=== PATIENT | male | born 1990 | race Two or more races ===

== ENCOUNTER 2016-08-15 12:06 | Inpatient (IN) | payer OTHER ==
[~2016-08-15] VITALS: Ht 175.3 cm; Wt 94.3 kg
--- NOTE | ~2016-08-15 | RESCARESUM ---
"PATIENT: JEREMIAH QUIÑONEZ | | [facility] UNIT #: [id number] | [address] AGE/SEX: 26 M : [birth year] | [address] | [place] [address] ADMIT/REG DATE: 08/15/16 | ROOM: [facility] LOC: ADTC | ADTC | Summary of Residential Care Primary Counselor: Cammie Arias LM,[facility] Date of Admission: 08/15/16 Date of Discharge: 09/12/16 Referral Source: [facility] [employer] [employer] [facility], [facility] Primary Care Provider Prior to Admission: no doctor listed Admitting Diagnosis: Stimulant use disorder-severe, Cannabis use disorder-severe in full ustained remission, 303.90 Alcohol use disorder-moderate, 305.1 Tobacco use disorder Discharge Diagnosis: unchanged Goals Achieved: Client successfully completed residential treatment for addictions. Client did do step 1 and owned powerlessness over alcohol/drugs. He did get a couple names from potential sponsors but did not call while in treatment. Client did identify and discuss feelings daily and identified things that he has anger about. He did do EMDR relaxation and liked this and also did EMDR on issues with his father. He wants to do more EMDR in aftercare on bullying by his brother. He did invite mother/sister/girlfriend to family program but no one came, however he did attend alone but did not write feelings letters. Client did attend weekly Spirituality class, relapse prevention class, step-study class and recovery 101 class to learn more to strengthen his recovey. He did ask questions, pray and did ask to go to [facility] for added support for his recovery as voiced afraid it will be hard when gets out of treatment. Client did start work on the Relapse Prevention packet and had a few pages to work on in aftercare. Client had a positive attitude while in treatment, he found out his mother of children was moving kids out of state and he stayed in treatment even though he was mad and struggling. He had conflict with a male peer in treatment that angered him but he handled it appropriately and processed his feelings. Client was praised for his commitment to recovery/treatment/aftercare. Continued Obstacles to Sobriety/Relapse Issues: music, using people/places/things, stuffing feelings, anger/resentments, boredom, negativity, over-confidence, isolation, think don't need meetings/not calling sponsor, recent girlfriend is still using so needs to keep strong boundaries. Family Issues Addressed: Client attended family program alone, he was told by GF she would come 2x but never showed and client stayed engaged in his treatment for himself, but was hurt. His family didn't come and mom speaks Amharic so will benefit from family session in aftercare. x Individual Therapy x Group Therapy x Educational Series on Substance Abuse Parents/Significant Others Attended Family Program Acute Medical Problems During the Course of Treatment Transferred to Hospital During the Course of Treatment PATIENT: JEREMIAH QUIÑONEZ | | [facility] UNIT #: [id number] | [address] AGE/SEX: 26 M : 89 | [address] | [place] [address] ADMIT/REG DATE: 08/15/16 | ROOM: [facility] LOC: [facility] | [facility] | Summary of Residential Care x Accepting of Substance Abuse Problem Non-accepting of Substance Abuse Problem Required Psychological or Psychiatric Consultation During the Course of Treatment Completed AA Step # -21 During This Level of Care Significant Incidences During Treatment: client stayed in treatment even though he had several trials/upsets/angers. Client chose to seek going to the [facility] on his own initiative knowing he needs added support. Reason For Discharge: x Completed Residential TX Goals and Ready For Next Level of Care Left Tx Against Medical Advice/Treatment Goals Not Complete Completed Residential Tx Goals But Refusing Continuing Care Recommendations Discharged Due to Noncompliance/Treatment Goals not Completed Discharged Earlier Than Planned Due to: Continuing Care Plan/Recommendations: Intensive Partial Care x Sponsor Partial Care x AA Meetings/NA Meetings Outpatient Co-dependency Services Therapeutic Community x 1/ Way [place] 3/4 [facility] Mental Health Therapy Marriage Counseling Other Specific Continuing Care Plan: Client is being referred to the [facility] and is to enter their program at 10am today. He will need further help with anger/feelings, self-esteem, family sessions with dress shoe inspector, not calling a sponsor and would like more EMDR on brothers bullying. He also is referred to AA/NA weekly and to use sponsor weekly. Could benefit from attending a evangelical. PRIMARY COUNSELOR: Cammie Arias"
--- NOTE | ~2016-08-15 | INDIVTXPL2 ---
"PATIENT: JEREMIAH QUIÑONEZ | | [facility] UNIT #: [id number] | [address] AGE/SEX: 26 M : [birth year] | [address] | [place] [address] ADMIT/REG DATE: 08/15/16 | ROOM: [facility] LOC: ADTC | ADTC | Individualized Treatment Plan DATE: 08/22/16 Problem Statement/Issue Identified: Client is experiencing family discord and distancing as a result of past alcohol & drug usage. Goal: Client is to learn about effects of addiction on family/self, work on communication feelings/making ammends to strengthen his recovery. Objectives/Activities to achieve goal: 1. Client is to attend Family Educational program 09/01 2-4:40 and Tuesday 09/05 2pm-8:45pm Participate in class. See family note. Due Date: 09/05/16 Complete: Incomplete: 2. Client is to write feelings letters (parents, kids, ex) owning how his addiction hurt them and his feelings. Share with group, family group or counselor. Due Date: 09/05/16 Complete: Incomplete: Client Signature Date Counselor Signaure: Date Outcome/Measurement of Progress Towards Goal: Counselor Signature: Date "
--- NOTE | ~2016-08-15 | CLPRLASSUM ---
"PATIENT: JEREMIAH QUIÑONEZ | | [facility] UNIT #: [id number] | [address] AGE/SEX: 26 M : 89 | [address] | [place] [address] ADMIT/REG DATE: 08/15/16 | ROOM: [facility] LOC: ADTC | ADTC | Client Problem List/Assessment Summary Date: 08/22/16 Problems identified by the client: Addiction, family, Show/cope with emotions/anger, be more responsible, relapse prevention Problems identified by significant others: addiction, be responsible (job/parenting) Client's Strengths: easy to get along with, respectful Problem List: Code: T Client continues to use alcohol &/or drugs despite ongoing negative consequences. Code: T Client is experiencing family &/or significant other discord and distancing as a result of past alcohol &/or drug usage. Code: T Client doesn't know how to deal with feelings and anger, needs to identify and process feelings to maintain senior care sobriety. Code: O Client needs help to learn to be responsible with job, parenting, recovery to help him succeed in sobriety. Code: T Client needs to identify relapse warning signs and develop a plan to deal with them as they arise. Code Funes: T: to be addressed during course of treatment O: problem noted, expected to resolve itself with abstinence--specific tx plan not required R: problem noted, will be referred upon discharge PRIMARY COUNSELOR: Cammie Arias"
--- NOTE | ~2016-08-15 | INDIVTXPL2 ---
"PATIENT: JEREMIAH QUIÑONEZ | | [facility] UNIT #: [id number] | [address] AGE/SEX: 26 M : 89 | [address] | [place] [address] ADMIT/REG DATE: 08/15/16 | ROOM: [facility] LOC: ADTC | ADTC | Individualized Treatment Plan DATE: 08/29/16 Problem Statement/Issue Identified: Client doesn't know how to deal with feelings, anger, &was bullied needs to identify and process feelings to maintain half-way sobriety. Goal: Client needs to learn to identify & process his feelings to strengthen his recovery. Objectives/Activities to achieve goal: 1. Client is to write feelings daily on Significant Event Forms and attend Feelings lecture. See lecture/IS notes. Due Date: 09/12/16 Complete: Incomplete: 2. Client is to share with counselor top 10 angers and 5 things that made him angry in treatment. Also can do EMDR relaxation with counselor. See counselor notes. Due Date: 09/07/16 Complete: Incomplete: 3. Client is to do EMDR on bullying experience if willing. See counselor note. Due Date: 09/09/16 Complete: Incomplete: Client Signature Date Counselor Signaure: Date Outcome/Measurement of Progress Towards Goal: Counselor Signature: Date "
--- NOTE | ~2016-08-15 | INDIVTXPL2 ---
"PATIENT: JEREMIAH QUIÑONEZ | | [facility] UNIT #: [id number] | [address] AGE/SEX: 26 M : 89 | [address] | [place] [address] ADMIT/REG DATE: 08/15/16 | [facility]: ADTC | ADTC | Individualized Treatment Plan DATE: 08/29/16 Problem Statement/Issue Identified: Client needs to identify relapse warning signs and develop a plan to deal with them as they arise. Goal: Client is to learn about relapse prevention, identifying his top relapse triggers and develop plan of how to avoid relapse to succeed with sobriety/clean. Objectives/Activities to achieve goal: 1. Client is to attend Monday Relapse Prevention classes and participate. See notes. Due Date: 09/06/16 Complete: Incomplete: 2. Client is to fill out Relapse Prevention packet, identifying top 5-10 relapse triggers, develop plan to avoid relapse, and discuss with counselor. See notes. Due Date: 09/12/16 Complete: Incomplete: Client Signature Date Counselor Signaure: Date Outcome/Measurement of Progress Towards Goal: Counselor Signature: Date "
--- NOTE | ~2016-08-15 | TXPLANREV ---
"PATIENT: JEREMIAH QUIÑONEZ | | [facility] UNIT #: [id number] | [address] AGE/SEX: 26 M : 89 | [address] | [place] [address] ADMIT/REG DATE: 08/15/16 | ROOM: [facility] LOC: ADTC | ADTC | Treatment Plan/Staffing Review Date: 09/05/16 Treatment plan was reviewed and determined appropriate as written: yes, client is doing EMDR this week, is to do feelings letters. No family involvment as his new GF has said she would come 2x and no showed and he admits she has relapsed and is using. Treatment plan was reviewed and the following changes/addition/deletions are necessary: Discharge plans were reviewed and determined appropriate as previously documented: Client applied to [facility], is to do interview this 8am. He is being referred to the [facility] for aftercare, but if no openings will live with his mom and do aftercare counseling with us until a bed opens. Discharge plans were reviewed and determined to be as follows: Other pertinent issues discussed during this staffing review include: Client has had several incidents that client could of reacted to by leaving treatment or getting in a fight with peer but he stayed in treatment and didn't fight. Client was praised for not being impulsive, by thinking things through to protect himself. Staff Present: Florida Sanchez, Beba Paulino, Chelsea Elena, Jalyn Alford, Oscar Oleary, Diya Marquez PRIMARY COUNSELOR: Cammie Arias Client Signature Counselor Signature Date Time "
--- NOTE | ~2016-08-15 | TXPLANREV ---
"PATIENT: JEREMIAH QUIÑONEZ | | [facility] UNIT #: [id number] | [address] AGE/SEX: 26 M : 89 | [address] | [place] [address] ADMIT/REG DATE: 08/15/16 | ROOM: [facility] LOC: ADTC | ADTC | Treatment Plan/Staffing Review Date: 08/29/16 Treatment plan was reviewed and determined appropriate as written: client is working on step 1, is running behind on step 1, needs to extend through weekend and share next week. Treatment plan was reviewed and the following changes/addition/deletions are necessary: Discharge plans were reviewed and determined appropriate as previously documented: Discharge plans were reviewed and determined to be as follows: Client is to discharge by 09/12/16, and is being referred to [facility] if they have openings. He also is referred to AA/NA and using sponsor. Other pertinent issues discussed during this staffing review include: Client found out his mother of his children is moving kids out of state and he was angry, worried and had thoughts of leaving but did call his licensed nuclear control room operator and brother to help, and is planning to stay and can work on this issue after out of treatment. Staff Present: Florida Sanchez, Chelsea Elena, Eneida Jacinto, Sana Mendez, Oscar Oleary PRIMARY COUNSELOR: Cammie Arias Client Signature Counselor Signature Date Time "
--- NOTE | ~2016-08-15 | INDIVTXPL2 ---
"PATIENT: JEREMIAH QUIÑONEZ | | [facility] UNIT #: [id number] | [address] AGE/SEX: 26 M : 89 | [address] | [place] [address] ADMIT/REG DATE: 08/15/16 | ROOM: [facility] LOC: ADTC | ADTC | Individualized Treatment Plan DATE: 08/22/16 Problem Statement/Issue Identified: Client continues to use alcohol &/or drugs despite ongoing negative consequences. Goal: Client is to learn about addiction/alcoholism, identify consequences of his use and learn how to work the AA/NA program to help him succeed in recovery. Objectives/Activities to achieve goal: 1. Client is to fill out Getting Started and Step 1 packets, identifying 10-15 consequences of his use. Share with counselor and share selected pages in group. Due Date: GS by 08/30/16 and Step 1 by 09/02/16 Complete: Incomplete: 2. Client is to get sponsor #'s and call while in treatment weekly to build support before gets out of treatment. Share progress with counselor. Due Date: ongoing Complete: Incomplete: 3. Client is to attend and talk at AA/NA meetings, help chair a meeting and pick topic that would help him in recovery at a meeting. Share progress with counselor. Due Date: ongoing Complete: Incomplete: Client Signature Date Counselor Signaure: Date Outcome/Measurement of Progress Towards Goal: Counselor Signature: Date "
--- NOTE | 2016-08-15 16:30 | NUR ---
ADMISSION NOTE Rights/Responsibilities: Copy given and explained to client. Signed and accepted by client. Client oriented to physical lay out of the ADTC unit, given Big Book and admission packet. A Indra was assigned. Gabino Client is a 25yr old single male. Brought to tx by [facility] staff, where he has been for the past 6 days. Lives in [place], [place]. DOC, Meth, last used 08/07/16, 1/2 gram. No allergies, No meds. Family participation maybe. Initial paperwork given and guidelines gone over. Was searched no contraband found. Doctor has been notified.
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
--- NOTE | 2016-08-15 17:17 | NUR ---
FAMILY CONTACT- did call to let sister know client is in treatment as of this afternoon, and that she and her mom will get family packet in mail from us. Will need to call again with visiting hours and to find out what they hope he works on, and discuss family program.
--- NOTE | 2016-08-15 22:47 | NUR ---
Tech Note: Client worked on beaded projects for rec and attended N.A.Meeting. SE: Coming to treatment
--- NOTE | 2016-08-16 04:07 | NUR ---
Bed Note: Client was in bed with eyes closed and motionless at all bed checks.
--- NOTE | 2016-08-16 11:30 | NUR ---
Morning Group, 07/11. 1.5 hours, Client attended and actively participated in group discussion. Client shared the chain of events that brought him to treatment and how when he is using he is not the same person as when he is sober. Client shared a story about how he was raised and the way things are done in [facility].
--- NOTE | 2016-08-16 14:47 | NUR ---
Tech Note: Client participated in group walk for exercise, watched the first half of Pleasure [employer]woven for education and is working on Getting Started.
--- NOTE | 2016-08-16 16:00 | NUR ---
Relapse Prevention, 07/18, 1.0 hours, Client attended and actively participated in relapse education which focused on compulsive behaviors and relapse.
--- NOTE | 2016-08-16 16:41 | NUR ---
Education Note: Client participated in Relapse Prevention education.
--- NOTE | 2016-08-16 18:22 | NUR ---
Education: 1 HOUR. Client attended "Codependency" lecture given by staff.
--- NOTE | 2016-08-16 22:27 | NUR ---
TECH NOTE: Client played Catch Phrase for REC, participated in Guided Meditation, and attended AA meeting. Family brought clothes for client SE: AA
--- NOTE | 2016-08-17 04:35 | NUR ---
tech note: client was motionless in no distress @ all bed checks.
--- NOTE | 2016-08-17 11:17 | NUR ---
Tech notes: Client is working on Getting started and mtg with shaheed.
--- NOTE | 2016-08-17 12:58 | NUR ---
Group 1.5hrs 1:9 Student: Lizet Baca Clients shared feelings letters and received feedback from peers. Client sat quietly observing most of the group.
--- NOTE | 2016-08-17 13:20 | NUR ---
Education note: Client attended speaker Chuck for education.
--- NOTE | 2016-08-17 15:00 | NUR ---
IS 1 hr/ Client has started on GS packet but not to far. He still had his BPS in his book and only had 4 pages done on it so was told to stay out of programming until gets his intake paperwork done along with the hobbies/activities paper. Client agreed to do this first and may miss some programming today until done. He asked to call mom and did talk in [place].
--- NOTE | 2016-08-17 17:25 | NUR ---
SPIRITUAL EDUCATION 1 HR. We oriented newcomers to spirituality group, and todays activities were putting on presentations from parts of TOWARDS SPIRITUALITY book.
--- NOTE | 2016-08-17 23:08 | NUR ---
tech note: Client played Pictionary for recreation & attended onsite NA meeting. SE: NA meeting.
--- NOTE | 2016-08-17 23:29 | NUR ---
Eduction: 1 Hour. Client attended "Disease Concept" lecture.
--- NOTE | 2016-08-18 05:39 | NUR ---
tech note: Client was motionless in no distress at all bed checks.
--- NOTE | 2016-08-18 10:22 | NUR ---
Tech Note: Client participated in Spiritual Enrichment. Client stated that he is working on, "How to Get Started in Treatment."
--- NOTE | 2016-08-18 11:53 | NUR ---
Group 1.5 Hr Ratio 1:11/Topics today were orientating two new members to group rules and goals. A feelings letter and dealing with anger. Client shared how he deals with his anger and it was not good as he let his pride stop him from dealing with it in a positive manner.
--- NOTE | 2016-08-18 15:34 | NUR ---
Education 1 Hour: Client heard a panel of speakers from the local recovery community, who shared their experience, strength and hope.
--- NOTE | 2016-08-18 17:06 | NUR ---
Step education/1 hr/ Focus was on step one. Each person completed a worksheet on this topic and then chose 4 from sheet to share out loud. This person participated.
--- NOTE | 2016-08-18 23:23 | NUR ---
TECH NOTE: Client redecorated the building for . Nataly's Day, participated in Guided Meditation and attended on-site AA meeting. Worked on finishing BPS and REC assessment. Was late for curfew because was cleaning REC room. SE: AA
--- NOTE | 2016-08-19 04:37 | NUR ---
Bed Note: Clt lay motionless in bed with eyes closed showing no distress at all bed checks.
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
--- NOTE | 2016-08-19 13:00 | NUR ---
PEER REVIEWS, 1 HR: Clt participated in peer review process and was able to give open and honest feedback to those receiving a review.
--- NOTE | 2016-08-19 15:49 | NUR ---
Tech Note: Client watched the second half of Pleasure Unwoven for education and is working on Getting Started.
--- NOTE | 2016-08-19 20:30 | NUR ---
Tech note: client watched tv and movies SE:group
--- NOTE | 2016-08-20 04:33 | NUR ---
Bed note: client was in bed with eyes closed and no distess at all bed checks
--- NOTE | 2016-08-20 16:27 | NUR ---
Tech Note: Client attended N.A.Panel and is working on Getting Started and also had a visit.
--- NOTE | 2016-08-20 20:13 | NUR ---
tech note: Client did service work at offsite location where clients attended the AA meeting. Client watched tv. SE: visit.
--- NOTE | 2016-08-21 04:59 | NUR ---
Bed Note : Client had eyes closed and in no distress at all bed checks.
--- NOTE | 2016-08-21 16:23 | NUR ---
Tech Note: Client is working on getting started pkt, went on optional walk, restorationism and had visitors
--- NOTE | 2016-08-21 23:36 | NUR ---
TECH NOTE: Client attended AA panel, participated in community clean and watched tv/movies. attended optional [employer] meeting SE: all day
--- NOTE | 2016-08-22 04:14 | NUR ---
BED NOTE: Client was in bed, motionless with eyes closed all three bed checks.
--- NOTE | 2016-08-22 07:27 | HP ---
ADMIT: 08/15/2016 RM/LOC: [id number] [facility] MR#: [id number] [address] [facility] [address] [place] [id number] DALE QUIÑONEZ [address] [place] [address] History and Physical SEX: M AGE: 25 : 1990 DATE OF SERVICE: CHIEF COMPLAINT: Chemical dependency. HISTORY OF PRESENT ILLNESS: Dale is a 25-year-old single, male with 3 children, who is currently on protection order from the mother, who had current probation for third-degree assault with current domestic assaults and a number of charges pending, including tampering with evidence and possession of weapon to commit a felony and subsequently checked himself into [facility] for detox August 10 through the and comes to treatment on August 15, for drug and alcohol dependency. Dale states he has a number of legal charges. He has had driving suspensions, no licenses, loud music, he has 11 charges pending. He states he has been in senior care about 3 times and was not been imprisoned. He states he checked himself into treatment as he knew he needed help. Dale's drug of choice on admission is methamphetamines. He first started using meth at 20 years of age with friends. Initially, he used about 0.25 g on weekends. By , he was smoking 0.25 ounce two to three times a day and did that for a year or two. He states he dealt drugs and they were readily available. States he has had sporadic use and would use commonly 3 to 5 times a week. Last 6 months, he has been using half to 1 g daily. His last use was August 07. Denies doing any IV drugs. He does admit to dealing and running drugs in the past. His second drug of choice is cannabis. He first started smoking pot at 14 years of age. In high school, he smoked pot 1 to 3 times a week. His heaviest use was 19 to 21, when he would have an extra large blunt everyday. He states the last 4 years, he would use a pipe off and on on weekends. He states he has not smoked pot in 2 years. Third drug of choice is alcohol. He states he really never drank until he was 22. States he rarely drinks now, but he drinks on special occasions such as birthdays and holidays. When he does drink, he will frequently drinks 6 to 12 beers. States on average he will drink 3 to 5 times a year. Denies any DUIs or MIPs with alcohol. PAST MEDICAL HISTORY: No operations, illnesses, medications, or allergies. SOCIAL HISTORY: Is that of a 25-year-old single, male. He has previously worked in [employer] and also doing manual labor and construction type jobs and worked at [employer]. Smokes a pack of cigarettes daily. Has 3 children. He is currently on a protection order from his girlfriend. FAMILY HISTORY: Includes hypertension in his mother and maternal grandmother, diabetes in mother and maternal grandmother, stroke in maternal grandmother. REVIEW OF SYSTEMS: Negative. ADMIT: 08/15/2016 RM/LOC: Aleksandra508 [facility] MR#: [id number] [id number] [place] [address] [address] [place] [address] History and Physical SEX: M AGE: 25 : 1990 PHYSICAL EXAMINATION: VITAL SIGNS: He is 5 feet 9 inches with a weight of 94.3 kg. Blood pressure 126/58, with a pulse of 75, and a temp 96.5. GENERAL APPEARANCE: Is that of a 25-year-old male, who is alert, oriented, in no acute distress. HEENT: Pupils are reactive. Extraocular muscle intact. TMs normal. Throat normal. NECK: Normal. HEART: Regular without murmur. LUNGS: Clear. ABDOMEN: Soft, nontender, benign. and RECTAL: Deferred. EXTREMITIES: Revealed no clubbing, cyanosis, edema, tracks, or splinter hemorrhages. NEURO: Normal including light touch, strength, DTRs. LABORATORY DATA: [facility] included CBC, chemistry panel, and UA that are normal. ASSESSMENT: 1. Stimulant use disorder, severe. 2. Cannabis use disorder, severe, in full sustained remission. 3. Alcohol use disorder, mild to moderate. 4. Tobacco dependency and antisocial personality traits. PLAN: We will proceed with drug and alcohol abuse dependency treatment and counseling and further evaluation and management based on course during hospitalization. Please see his hospital record for the details. Frederic Velazquez MD/ get JOB #: [id number] CC: Frederic Velazquez, Attending Physician NO FAMILY PHYSICIAN, Family Physician
--- NOTE | 2016-08-22 10:40 | NUR ---
Tech notes: Client is working on Getting started
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
--- NOTE | 2016-08-22 13:32 | NUR ---
Education note: Client watched video "It can't happen to me"
--- NOTE | 2016-08-22 15:00 | NUR ---
IS 1 hr/ Client has not even started his GS packet and has been here 1 week. Client was confronted on his need to get that done by Wed. He shared he had family come and visit, he thinks his mom and sister will come to family program, his brother may not due to job and he never filled out release for him. Went over his BPS and discussed what he most needs to work on. He was grieved by his brother whom he is closest with being deported and when his grandma . He wants help to deal with emotions and anger mainly!! He did not see himself as addict when filled out BPS but now does see self addicted to meth, but not alcohol or weed as he felt he could take it or leave it, yet he does verbalize he understands he can't dabble with any addictive substances. Plan to get GS packet done.
--- NOTE | 2016-08-22 16:00 | NUR ---
TRAUMA NOTE- client suffered grief when favorite brother was deported. Also struggles with explosive anger and could see if that comes from childhood experience/trauma.
--- NOTE | 2016-08-22 16:00 | NUR ---
RECOVERY 101 1 HR/ Clients learned about Fundamentals of recovery and tools from AA/NA. They participated by sharing what they hear at meetings that are important for their recovery like: working the steps, how to get and use sponsors, reading C.A.L. literature, service work, HP concept, opening up, slogans, using the Serenity Prayer, attending functions, what is closed and open meetings, etc.
--- NOTE | 2016-08-22 19:07 | NUR ---
Education 1HR: Clt attended lecture given by counselor on "Communication".
--- NOTE | 2016-08-22 22:31 | NUR ---
Tech note: Client participated in group by playing catch phrase. Client attended an onsite NA meeting. SE: Rec
--- NOTE | 2016-08-23 05:07 | NUR ---
Bed note : Client was motionless with eyes closed at all bed checks.
--- NOTE | 2016-08-23 16:17 | NUR ---
A.M. 1.5 hr group/ratio 07/09 Group heard a getting started and a step one. Discussion was on not being too sure of yourself that you won't relapse. This client related and gave feedback.
--- NOTE | 2016-08-23 16:34 | NUR ---
Tech Note: Client watched video The Enabler and is working on Getting Started.
--- NOTE | 2016-08-23 18:48 | NUR ---
Education: 1 Hour. Client attended presentation given by [facility] AIDS/STDS/HIV. HIV testing was available.
--- NOTE | 2016-08-23 20:13 | NUR ---
Relapse Prevention,07/22 1.0, Client attended and participated in relapse prevention education which focused on internal and external triggers.
--- NOTE | 2016-08-23 21:42 | NUR ---
tech note: client c/o cough @ 7381 tessalon perles given.
--- NOTE | 2016-08-23 22:29 | NUR ---
tech note: client c/o body aches @ 2228,motrin 400mg was given.
--- NOTE | 2016-08-23 23:07 | NUR ---
Tech note: Client participated in rec by playing pictionary. Client went to guided meditation and attended an onsite AA meeting. SE: Poss sponsor
--- NOTE | 2016-08-24 05:33 | NUR ---
tech note: client was motionless in no distress at all bed checks.
--- NOTE | 2016-08-24 10:20 | NUR ---
Tech Notes: Client is working on Getting started
--- NOTE | 2016-08-24 12:00 | NUR ---
AM GROUP 10:1/1.5 HR: Client and peers helped to ORIENT A NEW PEER TO GROUP GUIDELINES, GOALS, & OBJECTIVES. Two group members processed from assignments but much of the examples they gave and personal sharing focused on how addiction affects children at any age. This client initially was very distracting. He shared up front that he was not feeling good (sniffly, etc) but made many distracting snorts and gestures. Staff finally called him on it and he settled down. Client wanted to put all the blame on his ex for not being able to have more time with their children. His tone did seem to change as others shared and took responsibility for thier own actions/inactions that have resulted in estranged relationships. Client and peers heard that it is a great gift to find level ground where they can work together to parent their children.
--- NOTE | 2016-08-24 16:00 | NUR ---
SPIRITUAL EDUCATION 1 HR. We started a two part education on Forgiveness today and group discussion on sam points.
--- NOTE | 2016-08-24 23:25 | NUR ---
Tech note:Client participated in rec-worked on beaded projects SE:NA meeting
--- NOTE | 2016-08-24 23:40 | NUR ---
Education: 1 hour lecture on step 2 & 3 given by counselor
--- NOTE | 2016-08-25 04:40 | NUR ---
Bed note: client was in bed with eyes closed and no distress at all bed checks.
--- NOTE | 2016-08-25 08:54 | NUR ---
Medication Note: Client took prn mucinex, benzonatate and cepacol lozenge. Client also took prn ibuprophen for H/A and body aches rated at 3.
--- NOTE | 2016-08-25 11:30 | NUR ---
Group 1.5hr/ 11:1 Clients all were attentive as peers shared GS packets and some shared how they relate. This client did give feedback and relate, he shared his GS packet with the group also. He stated "my addiction took over and controlled me". He also had resentment with a william that told on him to police and he is resentful so was given feedback on the damage of resentments and how to forgive.
--- NOTE | 2016-08-25 11:50 | NUR ---
Group 1.5hrs 1:10 Two new clients were orientated about group goals and rules. Feelings letters were shared and feedback was given by peers. Client shared how he felt set up and that was why he is in treatment. Client shared how he came to detox because he did not want to cause harm to someone. Student- Lizet Baca
--- NOTE | 2016-08-25 14:21 | NUR ---
Education 1 Hour: Client heard a presentation on, "Marijuana."
--- NOTE | 2016-08-25 14:46 | NUR ---
FAMILY EDUCATION 3 HRS. Client was accompanied by his S/O. They took part in the discussion on the disease concept. Client shared chemical history and the consequences.
--- NOTE | 2016-08-25 15:12 | NUR ---
Tech Note: Client participated in Spiritual Enrichment in the morning and walked in the halls for afternnon exercise. Client stated that he is working on, "How to Get Started in Treatmedment."
--- NOTE | 2016-08-25 20:13 | NUR ---
IS 1 hr/ Client and counselor went over his GS packet, he did good job and is to share in group, he has to ask for some help with Romanian language to understand but he likes to learn. He reads better in Faroese so could let him have Faroese Bible and Faroese AA big book. Clients Birthday is today and family brought him a cake. He will talk with them about coming to family program again. Client was given step 1 to start. Is to find a sponsor.
--- NOTE | 2016-08-25 23:06 | NUR ---
Tech Note: Client participated in rec and attended A.A.Meeting.
--- NOTE | 2016-08-25 23:23 | NUR ---
Education Note: Client watched the healthy families video which lasted an hour.
--- NOTE | 2016-08-26 04:49 | NUR ---
Bed note: Client was in bed with eyes closed and no distress at all bed checks. exept awake at 2nd bed check.
--- NOTE | 2016-08-26 15:23 | NUR ---
PEER REVIEWS 1 HR: Clt participated in peer review process and was able to give open and honest feedback to those receiving a review.
--- NOTE | 2016-08-26 16:32 | NUR ---
Tech Note: Client watched a video "How to Sabotage Your Treatment" and is working on Step 1 and Big Book.
--- NOTE | 2016-08-26 23:51 | NUR ---
TECH NOTE: Client participated in guideline reading, watched tv/movies and used the phone. Attended off site optional AA meeting. Was redirected for speaking gibraltarian to male peer. SE: group
--- NOTE | 2016-08-27 04:48 | NUR ---
BED NOTE: Client was in bed, motionless with eyes closed all three bed checks.
--- NOTE | 2016-08-27 08:55 | NUR ---
Medication Note: Client took prn cepacol lozenge, Mucinex and benzonatate for cold-like symptoms and ibuprophen for ear ache rated at 5.
--- NOTE | 2016-08-27 12:20 | NUR ---
PEER REVIEWS 1 HR: Clt participated in peer review process and was able to give open and honest feedback to those receiving a review.
--- NOTE | 2016-08-27 16:20 | NUR ---
Tech Note: Client went to AA mtg at [facility] and [place]. Is working on Feelings Letters, Step 1 and the Big Book. Client had visitors.
--- NOTE | 2016-08-27 20:05 | NUR ---
TECH NOTE: Client played Catch Phrase for REC, attended off site AA meeting, watched TV/movies and used phone. SE: talked to potential sponsers
--- NOTE | 2016-08-28 04:49 | NUR ---
Bed Note: Clt lay motionless in bed with eyes closed showing no distress at all bed checks.
--- NOTE | 2016-08-28 14:30 | NUR ---
FAMILY CONTACT- did meet clients mom, sister and GF. Did discuss coming to family program and GF said she would come Monday at 1pm for family session.
--- NOTE | 2016-08-28 16:08 | NUR ---
Tech Note: Client participated in Big Book Study. Client stated that he is working on Step One. Client received visitors.
--- NOTE | 2016-08-28 22:53 | NUR ---
TECH NOTE: Client attended AA panel, participated in community clean and watched tv/movies. attended etl analyst meeting SE: visits
--- NOTE | 2016-08-29 04:25 | NUR ---
Bed Note: Clt lay motionless in bed with eyes closed showing no distress at all bed checks.
--- NOTE | 2016-08-29 10:18 | NUR ---
Tech notes: Client is working on Step 1 and Fl's.
--- NOTE | 2016-08-29 11:30 | NUR ---
Morning Group, 07/13 ratio, 1.0 hours, Client attended and actively participated in group therapy. Client offered advice to his peers.
--- NOTE | 2016-08-29 12:43 | NUR ---
Education Note: Client attended educational speaker Kit on Crossaddiction.
--- NOTE | 2016-08-29 13:15 | NUR ---
FAMILY SESSION - NO SHOW. Clients GF did not come, he went to education instead.
--- NOTE | 2016-08-29 17:00 | NUR ---
FAMILY EDUCATION 3 HRS. Client attended alone and took part in the discussion on the family roles, codependency and detachment. He related to scapegoat and mascot roles.
--- NOTE | 2016-08-29 20:35 | NUR ---
Education: 1 hour lecture on feelings given by counselor
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
--- NOTE | 2016-08-29 23:45 | NUR ---
Tech Note: Client was in Family SE: Family/Taling with Danny
--- NOTE | 2016-08-30 04:02 | NUR ---
bed note: client was in bed with eyes closed and no distress at all bed checks.
--- NOTE | 2016-08-30 11:30 | NUR ---
GROUP 1.5 HRS. 1:9 Group discussion included how to deal with feelings appropriately and relapse triggers. This client brought up topic of feelings based on last night's education. Client asked appropriate questions about how to deal with feelings and states that he does not know how to feel. He is encouraged to use tools of SEF to assist him in identifying feelings. He appears to open to feedback and willing to learn.
--- NOTE | 2016-08-30 15:15 | NUR ---
Education Note: Client heard a presentation on, "Grief."
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
--- NOTE | 2016-08-30 16:28 | NUR ---
Tech Note: Client particiapted in light stretching for morning exercise and walked in the halls in the afternoon. Client stated that he is working on Step One and writing Feelings Letters.
--- NOTE | 2016-08-30 17:47 | NUR ---
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 He wants to go to [facility] and discussed this. Did look over his step 1 and he is to get it done, was confronted on his procrastination.
--- NOTE | 2016-08-31 00:07 | NUR ---
Education: 1 hour lecture given by Counselor on Step 1
--- NOTE | 2016-08-31 00:22 | NUR ---
Tech note: client worked on projects for the alumni genoveva for rec and attended AA meeting SE: 6 months clean from "alcohol"
--- NOTE | 2016-08-31 04:17 | NUR ---
Bed Note: Clt lay motionless in bed with eyes closed showing no distress at all bed checks.
--- NOTE | 2016-08-31 10:30 | NUR ---
Tech Notes: Client is working on Step 1 and Fl's.
--- NOTE | 2016-08-31 12:15 | NUR ---
AM GROUP 11:11.5 HR: Client and peers helped to ORIENT NEW PEER TO GROUP GUIDELINES, GOALS AND PURPOSE. Client and peers heard several group members process assignments. Many of the examples given focused on neglect of their children and various clients related to this and shared personal feedback. This client always shares about his own children, this time taking responsibility of neglecting his children even when he had visitation. He was otherwise active with feedback, but it seems that client always ends up blaming someone else. Today, tho he is charged with I believe six (6) felony charges, he started blaming the police for "piling on more charges" which could result in him getting deported.
--- NOTE | 2016-08-31 13:27 | NUR ---
Education note: Client attended education by [facility]
--- NOTE | 2016-08-31 17:58 | NUR ---
SPIRITUAL EDUCATION 1 HR. Today we discussed ways to quiet the mind and meditation and creativity.
--- NOTE | 2016-08-31 22:18 | NUR ---
tech note: client c/o cold symptoms @ 3318,mucinex & felicity vuong was given.
--- NOTE | 2016-08-31 23:09 | NUR ---
tech note: Client played a game for recreation & attended onsite NA meeting. SE: Group,NA & recreation.
--- NOTE | 2016-09-01 02:18 | NUR ---
Education: 1 Hour. Client attended "Unresolved Anger" video & discussion presented by staff.
--- NOTE | 2016-09-01 04:59 | NUR ---
BED NOTE: Client was in bed motionless with eyes closed all three bed checks.
--- NOTE | 2016-09-01 11:30 | NUR ---
AM GRP 1.5 HRS, Ratio 1:12/ Clt offered feedback to others and he brought up his own issue of thinking his g/f is using, as she hasn't shown up for family session, family education or visiting. He stated he is just working on himself and hopes to get into the [facility].
--- NOTE | 2016-09-01 11:35 | NUR ---
Tech Note: Client participated in Spiritual Enrichment. Client stated that he is working on reading the Big Book and writing Feelings Letters.
--- NOTE | 2016-09-01 13:09 | NUR ---
Education 1 Hour: Client heard a presentation from a member of the recovery community, who shared his experience, strength and hope.
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
--- NOTE | 2016-09-01 15:58 | NUR ---
Medication Note: Client took prn mucinex, benzonatate and cepacol lozenge at 0945.
--- NOTE | 2016-09-01 20:21 | NUR ---
Education 1HR: Clt watched video by Marc Catherine on Step 5.
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
--- NOTE | 2016-09-01 22:36 | NUR ---
TECH NOTE: Client played Catch Phrase for REC, participated in Guided Meditation and attended onsite AA meeting. Gave back 6 month AA chip because he didn't "deserve" it SE: AA
--- NOTE | 2016-09-02 04:27 | NUR ---
Bed Note: Clt lay motionless in bed with eyes closed showing no distress at all bed checks.
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
--- NOTE | 2016-09-02 13:00 | NUR ---
PEER REVIEWS 1.25 HRS: Clt participated in peer reviews and took a risk to give open and honest feedback to those receiving a review.
--- NOTE | 2016-09-02 15:50 | NUR ---
Tech Note: Client watched a video "It Can't Happen To Me" and is working on Step 1, Big Book, Feelings Letters and Anger Management.
--- NOTE | 2016-09-02 22:41 | NUR ---
Tech note : Client watched tv, played games and talked on the phone. Client walked to an offsite AA meeting. SE; Group
--- NOTE | 2016-09-03 05:01 | NUR ---
Bed note: Client was in bed with eyes closed and no distress at all bed checks.
--- NOTE | 2016-09-03 15:15 | NUR ---
Tech Note: Client attended N.A.Panel and is working on FL's
--- NOTE | 2016-09-03 20:45 | NUR ---
tech note: client played game for recreation & attended offsite AA meeting.Client watched tv & talked on the phone. SE: NA Panel
--- NOTE | 2016-09-03 23:07 | NUR ---
tech note: client requested a cough drop,felicity vuong & ozzieex @ 0708.
--- NOTE | 2016-09-04 16:02 | NUR ---
Tech Note: Client is working on FL's. He attended [facility]ats[facility] and had a visit.
--- NOTE | 2016-09-04 22:21 | NUR ---
Tech note: Participated in community clean, attended AA panel with Martínez Damon and went to an onsite [facility] [employer] meeting. SE; Meeting
--- NOTE | 2016-09-05 04:59 | NUR ---
Bed note: Client was in bed with eyes closed and no distress at all bed checks.
--- NOTE | 2016-09-05 13:27 | NUR ---
Education note: Client attended education speaker Ingrid on Tobacco.
--- NOTE | 2016-09-05 13:52 | NUR ---
Experiential Group 1.5hr/ Clients all participated in Family Sculpturing by role-playing, relating and giving feedback. This client asked to do his sculpture and shared sad feelings with brother being [id number] but now that brother is role-model for him. His mom sent him to [facility] for 1-2 months at age 15 cause he was in trouble. Client was the baby of family then jealous when sister born and was spoiled. Client owned resentments he has with oldest brother who bullied him.
--- NOTE | 2016-09-05 14:18 | NUR ---
Tech Note: client is working on Fl's and mtg with shaheed
--- NOTE | 2016-09-05 16:00 | NUR ---
RECOVERY 101 1 HR/ Clients all shared what they have struggled with in treatment and what helps them. This client shared about facing 7 felonies, and his GF was to come to family session and family program so he called and she was asleep, but agreed to get here by 2pm and was a No Show. So he plans to punish her by taking her off his list for visits. He is mad and angry she has a william living there that is likely dealing. Confronted him that he needs to not see her at all til she gets help, or could risk his recovery.
--- NOTE | 2016-09-05 18:04 | NUR ---
Education: 1 Hour. Client attended "Forgiveness" lecture presented by staff.
--- NOTE | 2016-09-05 23:15 | NUR ---
tech note: client played a game for recreation & attended onsite NA meeting. Client was redirected by Novomer for his language in the client meeting. SE: Got a sponsor.
--- NOTE | 2016-09-06 04:34 | NUR ---
tech note: client was motinless in no distress at all bed checks.
--- NOTE | 2016-09-06 10:00 | NUR ---
IS 1.25 hr/ Client and counselor did discuss assignments and he did write things that made him angry, sees how sharing it helps him. He wants in [facility] so did call them again today. Client did EMDR relaxation technique and pictured small spring that in frisian means 'water-eye" and he used peaceful as his relaxation words, liked watching the minnows (in [place]). Client was praised on how he had several times in treatment he could of walked out due to being mad or afraid and stayed, so he is not being impulsive and was praised for this.
--- NOTE | 2016-09-06 12:05 | NUR ---
AM GROUP 11:1/1.5 HR: Client and peers heard several process assignments and issues. Most clients related in some manner and were quick to offer personal experience and feedback. This client was active throughout with clarifying questions, personal sharing and feedback. Client suggested EMDR to a female peer to help her deal with her resentments/anger toward her mom.
--- NOTE | 2016-09-06 15:37 | NUR ---
Tech Note: Client attended programming on Relapse Prevention and is working on Feelings Letters and the Big Book.
--- NOTE | 2016-09-06 16:26 | NUR ---
Relapse Prevention, 07/25 ration, 1.0 hours, Client attended and participated in relapse prevention education which focused on relapse triggers/issues.
--- NOTE | 2016-09-06 22:22 | NUR ---
TECH NOTE: Client attended Alumni meeting and on-site AA meeting. SE: EMDR
--- NOTE | 2016-09-06 22:55 | NUR ---
EDUCATION NOTE: 1HR lecture on Shame given by counselor
--- NOTE | 2016-09-07 04:43 | NUR ---
Bed note: Client was in bed with eyes closed and no distress at all bed checks.
--- NOTE | 2016-09-07 10:07 | NUR ---
Tech note: Client is working on Relapse prevention, Fl's and was late for breakfest. He is to be 5mins early for all programing today.
--- NOTE | 2016-09-07 10:10 | NUR ---
Tech note: Client is to be 5mins early for all programing today
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
--- NOTE | 2016-09-07 12:45 | NUR ---
Education note: Client attended speaker Zach Lin
--- NOTE | 2016-09-07 16:09 | NUR ---
SPIRITUAL EDUCATION 1 HR. Topic today was on how addiction is a disease of body mind and spirit and how the Steps fit in treating the SPIRIT. We also talked about ways to spirituality, payoffs, and how spirituality is related to both addiction and recovery.
--- NOTE | 2016-09-07 18:17 | NUR ---
Education: 1 Hour. Client attended "Boundaries" lecture presented by staff.
--- NOTE | 2016-09-07 22:16 | NUR ---
Tech note : Client played pictionary for rec and attended an onsite NA meeting. SE: 30 days
--- NOTE | 2016-09-08 05:19 | NUR ---
tech note: client was motionless in no distress at all bed checks.
--- NOTE | 2016-09-08 11:59 | NUR ---
Group 1.5 Hr Ratio 1:9/Topics today were feelings letters and an anger and hurt assignment. A client also shared how her just say no assignment went Client shared his list of hurts and anger s and he received feedback about what he can do to let go of wanting to control others.
--- NOTE | 2016-09-08 15:48 | NUR ---
Tech Note: Client interviewed with representatives from a [facility] in the morning and went for an outdoor walk in the afternoon. Client stated that he is working on, "Relapse Prevention."
--- NOTE | 2016-09-08 15:55 | NUR ---
step education/1 hr/ Focus was on step 6 and looking at character defects. Each person shared some questions and answers and identified what character defects they are ready to let go of and what ones they are not willing to let go of. This client participated.
--- NOTE | 2016-09-08 16:34 | NUR ---
Education 1 Hour: Client heard a presentaion on "Wellness in Recovery."
--- NOTE | 2016-09-08 23:06 | NUR ---
Tech note: Client worked on craft projects for the dance for rec and attended AA meeting. Mom brought food SE:getting accepted to [facility]
--- NOTE | 2016-09-09 00:11 | NUR ---
Education note: Clients watched a movie on "my attitude' by Job Parra.
--- NOTE | 2016-09-09 04:54 | NUR ---
Bed note; client was motionlees, with eyes closed at all bed checks.
--- NOTE | 2016-09-09 12:05 | NUR ---
Group 1.5 Hr Ratio 1:12/Topics today were a change plan, resentment packet and a getting started. One new peer was orientated to group rules and goals. Client got up and left group when he was confronted on playing with a pen in his hand. He gave the pen to a peer riped off his wrist band, through it on the floor and left group. Client did apoligize after group andshared he did not like being called immature by a peer that he has had problems with in the past.
--- NOTE | 2016-09-09 13:59 | NUR ---
PEER REVIEWS 1.25 HRS: Clt participated in peer reviews and took a risk to give open and honest feedback to those receiving a review.
--- NOTE | 2016-09-09 16:20 | NUR ---
Tech Note: Client went with group for outside walk and watched "Marijuana", by Perez Parra, for education. Clt is working on Feelings Letters and the Big Book.
--- NOTE | 2016-09-09 23:47 | NUR ---
Tech Note: Client read guidelines with peers. He attended A.A. SE: Peer review
--- NOTE | 2016-09-10 05:32 | NUR ---
Bed Note: Client was motionless with eyes closed at all bed checks.
--- NOTE | 2016-09-10 15:46 | NUR ---
Tech Note: Client working on Antonieta Thinkin, the Big Book and Relapse Prevention. Client had visitors.
--- NOTE | 2016-09-10 20:32 | NUR ---
Tech Note: Client played a game for rec. They also attended the A.A.Meeting at [facility] and [facility]. SE: Visitation
--- NOTE | 2016-09-11 05:31 | NUR ---
Bed Note: Client was motionless with eyes closed at all bed checks.
--- NOTE | 2016-09-11 15:30 | NUR ---
Tech Note: Client participated in Big Book Study. Client stated that he is working on, "Relapse Prevention." Client attended spiritism.
--- NOTE | 2016-09-11 23:33 | NUR ---
Client attended A.A.Panel and helped with community clean. He also attended the APPLICATION HELPER meeting. SE: Talking with his kids on phone.
--- NOTE | 2016-09-12 05:03 | NUR ---
Bed Note: Client was motionless with eyes closed at all bed checks.
--- NOTE | 2016-09-12 09:25 | NUR ---
IS .75 hr/ cLIENT and counselor went over his Relapse Prevention packet, client admits he never wrote letters to parents so hopefully can do that at [facility]. Client called sponsor 1x, but then did get a different sponsor but only talked when saw at meetings, never called. Client admits he procrastinates. Client and counselor discussed things he can work on at [facility]. Did fill out Continued Care Plan, gave him medallion for completion of treatment and had him do the Survey.
--- NOTE | 2016-09-12 10:03 | NUR ---
DISCHARGE NOTE Client left tx with ride to the [facility], all personal belongings were sent with. Discharge instructions gone over and copy given.
--- NOTE | 2016-10-30 15:28 | DS ---
ADMIT: 08/15/2016 RM/LOC: A.508 [facility] MR#: [id number] [facility] [address] [place] [id number] DALE QUIÑONEZ [address] [place] [address] General Discharge Summary SEX: M AGE: 25 : 1990 ADMISSION DATE: 08/15/2016 DISCHARGE DATE: 09/12/2016 INDICATION FOR HOSPITALIZATION: Dale is a 26-year-old single, male with 3 children admitted to residential level treatment at [facility] on 08/15/2016. He had a number of legal charges. His drug of choice on admission is methamphetamines. Second drug of choice is cannabis. Third drug of choice is alcohol. Please see his hospital record for the details regarding his history of present illness, past medical history, physical exam, and assessment at the time of hospitalization. HOSPITAL COURSE: On admission, he was started on multivitamin. Later, Z-Hector was given for acute upper respiratory infection. During treatment, his primary counselor was Cammie Arias. Dale underwent individual group therapy sessions on drug and alcohol abuse dependency. He completed an educational series on substance abuse. Relapse triggers were identified and relapse prevention plan was outlined. Spirituality issues were addressed. He attended the family program alone. His significant other told him she would come but failed to show on two occasions. He was overall accepting of substance abuse problems. He completed step 1 and 2 of Alcoholics Anonymous. Reason for discharge is completion of residential level treatment goals. Aftercare recommendations include referral to the [facility] with sponsor assignment and active AA and NA meeting involvement. LABORATORY AND X-RAY DATA: Lab and x-ray data at time of discharge include multivitamin one daily. Lab and x-ray data during hospitalization none. DISCHARGE DIAGNOSES: Include: 1. Stimulant use disorder, severe. 2. Cannabis use disorder, severe, in full sustained remission. 3. Alcohol use disorder, mild to moderate. 4. Tobacco dependency with antisocial personality traits. PROCEDURES: Include drug and alcohol abuse dependency treatment and counseling. Please see his hospital record for the details. Frederic Velazquez MD/ get JOB #: [id number] CC: Frederic Velazquez MD, Attending Physician FAMILY PHYSICIAN, Family Physician
== END 2016-09-12 10:04 | disposition home or self-care (01) | DRG 895 ==
LOC: ADTC 12:06
PROVIDERS: ADMIT Family Medicine
PROC: HZ34ZZZ Individual Counseling for Substance Abuse Treatment, Interpersonal (ICD-10-PCS; principal; 2016-08-15)
PROC: HZ43ZZZ Group Counseling for Substance Abuse Treatment, 12-Step (ICD-10-PCS; principal; 2016-08-15)
DX: F15.20 Other stimulant dependence, uncomplicated (principal); F60.2 Antisocial personality disorder; F12.21 Cannabis dependence, in remission; F10.20 Alcohol dependence, uncomplicated; F17.210 Nicotine dependence, cigarettes, uncomplicated; Z65.3 Problems related to other legal circumstances